=== PATIENT | female | born 1960 | race Caucasian/White ===

== ENCOUNTER → 2018-08-01 | Outpatient (CLI) | payer OTHER ==
[~2018-08-01] MED LIST: ATR10 PO; FLUT16SP20 NS; HYDR-653 PO; LEVO50TA86 PO; MULT1CAP59 PO; OXYC1CAP PO; SERT-173 PO
--- NOTE | 2018-08-02 09:50 | RADIOLOGY IMAGING REPORT ---
[place] [facility] [place] NAME: SULLY HIGGINS : [id number] MR: [id number] V: [id number] EXAM DATE: [id number] ORDERING PHYSICIAN: MONY MON TECHNOLOGIST: Stacy Watts PROCEDURE: BILATERAL DIGITAL SCREENING MAMMOGRAM WITH CAD ASSISTED INTERPRETATION & 3D TOMOSYNTHESIS. REASON FOR STUDY: Screening. FAMILY HISTORY OF BREAST CANCER: Maternal grandmother. BREAST PROCEDURES/TREATMENTS: Benign stereotactic biopsy in the Right breast. COMPARISON: 01/11/17, 10/17/15, 04/02/14, 10/02/13, 09/24/13. VIEWS OBTAINED: 2D & 3D full field CC & MLO. BREAST DENSITY: There are scattered areas of fibroglandular density throughout the breasts. MAMMOGRAM FINDINGS: There is a stereotactic biopsy clip in the upper outer quadrant of the Right breast in the middle 1/3. The parenchymal pattern has remained stable allowing for difference in mammographic technique & patient positioning. IMPRESSION: BIRADS 2: Benign finding. DIAGNOSTIC CATEGORY 2--BENIGN FINDING. RECOMMENDATIONS: ROUTINE MAMMOGRAM AND CLINICAL EVALUATION IN 1 YEAR. Dictated by: Erin Rojas M.D. on 08/01/2018 at 16:52 Transcribed by: [email or web address] on 08/02/2018 at 8:41 Approved by: Erin Rojas M.D. on 08/02/2018 at 9:49 [facility]
== END ==
LOC: MAMO 00:29
PROVIDERS: ATTEND Nurse Practitioner Family
DX: Z12.31 Encounter for screening mammogram for malignant neoplasm of breast (principal); Z80.3 Family history of malignant neoplasm of breast
CPT/HCPCS: 77063; 77067